=== PATIENT | female | born 1950 | race Caucasian/White ===

== ENCOUNTER → 2020-11-22 | Outpatient (CLI) | payer MEDICARE, OTHER ==
[~2020-11-22] MED LIST: OXYACE5T PO
[2020-11-22 12:00] LABS: Source, Urine Clean Catch
[2020-11-22 18:11] LABS: Bacteria Few /hpf; Squamous Epithelial Cells Mod /hpf (Few); Yeast/Fungi Urine Few /hpf
[2020-11-22 18:13] LABS: Hyaline Casts 0-2 /lpf (0-2); Mucus Light (0-Heavy)
== END | disposition home or self-care (01) ==
LOC: LAB SHORT 11:56 → LAB 11:56
PROVIDERS: Family Medicine
DX: R30.0 Dysuria (principal)
CPT/HCPCS: 81015

== ENCOUNTER → 2021-07-11 | Outpatient (CLI) | payer MEDICARE, OTHER | LOC: LAB SHORT 12:27 | DX: N30.00 Acute cystitis without hematuria (principal); Z87.440 Personal history of urinary (tract) infections | CPT/HCPCS: 87086 ==